=== PATIENT | male | born 1985 | race African-American/Black ===

== ENCOUNTER 2022-02-25 16:08 | Inpatient (IN) | payer SELFPAY ==
[~2022-02-25] VITALS: Ht 188 cm; Wt 129.6 kg
[~2022-02-25 16:08] MED LIST: LIDO; LIDOCAINE VISCOUS TOP; NAPR250T OR; NICO14DI3 TD; PERC5TAB8 OR; TRAM50TA2 OR; l; lidocaine PO
[2022-02-25] MEDS ORDERED: MORPHINE 4 MG/ML 1ML VIAL/SYRINGE IV ONE (17:35)
[2022-02-25 18:04] LABS: BASO # 0.1 10^3/uL (0.0-0.2); BASO % 0.4 % (0.0-1.0); EOS # 0.1 10^3/uL (0.0-0.5); EOS % 0.5 % (0.0-3.0); HEMATOCRIT 43.3 % (42.0-52.0); HEMOGLOBIN 14.3 g/dl (13.5-17.5); LYMPH # 3.6 10^3/uL (1.5-5.0); LYMPH % 30.9 % (24.0-44.0); MEAN CORPUSCULAR HEMOGLOBIN 28.5 pg (27.0-33.0); MEAN CORPUSCULAR VOLUME 86.3 fl (80.0-96.0); MONO # 1.2 10^3/uL (0.0-0.8); MONO % 10.4 % (2.0-8.0); NEUTROPHILS # 6.6 10^3/uL (1.5-8.5); NEUTROPHILS % 57.3 % (36.0-66.0); PLATELET COUNT, AUTOMATED 169 10^3/uL (150-450); RED BLOOD COUNT 5.02 10^6/uL (4.30-6.10); WHITE BLOOD COUNT 11.5 10^3/uL (4.0-10.0)
[2022-02-25 18:43] LABS: BLOOD UREA NITROGEN 21 MG/DL (9-23); CALCIUM LEVEL 8.9 MG/DL (8.5-10.1); CARBON DIOXIDE LEVEL 21 MMOL/L (20-31); CHLORIDE LEVEL 104 MMOL/L (98-107); CK-MB VALUE MASS < 1.0 NG/ML (<3.6); CPK CREATINE PHOSPHOKINASE 161 U/L (46-171); GLOMERULAR FILTRATION RATE 51.7 (>60); GLUCOSE, FASTING 121 MG/DL (60-100); MB/CK RELATIVE INDEX 0.62 (< OR =4); POTASSIUM SERUM 4.2 MMOL/L (3.5-5.1); SODIUM LEVEL 138 MMOL/L (136-145)
[2022-02-25] MEDS ORDERED: KETOROLAC 30 MG/ML 1ML VIAL IV ONE (18:55)
[2022-02-25] MEDS ORDERED: ALBUTEROL 90 MCG/ACT 8GM HFA INHALER INH ONE (18:55)
[2022-02-25] MEDS ORDERED: NS 1,000 ML IV ONE ×2 (18:55→21:00)
[2022-02-25 19:42] LABS: MB/CK RELATIVE INDEX 0.59 (< OR =4)
[2022-02-25] MEDS ORDERED: HYDROMORPHONE HCL 0.5 MG/ 0.5 ML SYRINGE (J1170 PER 1) IV PRN (23:35)
[2022-02-25] MEDS ORDERED: ACETAMINOPHEN TAB 650MG DOSE (2X325MG) PO PRN (23:35)
[2022-02-25] MEDS ORDERED: NS 1,000 ML IV SCH (23:50)
[2022-02-26] VITALS (12 sets, daily range): BP systolic 148–200; BP diastolic 96–116
[2022-02-26] MEDS ORDERED: ACET-897 PO (00:18)
[2022-02-26] MEDS: METOPROLOL TART 12.5 MG PER 1/2 TAB PO SCH ×2 (00:19→08:05)
[2022-02-26] MEDS ORDERED: HOME MED LIST COMPLETE! XX SCH (00:20)
[2022-02-26] MEDS ORDERED: HYDROMORPHONE HCL 0.5 MG/ 0.5 ML SYRINGE (J1170 PER 1) IV ONE (03:05)
[2022-02-26] MEDS: LIDOCAINE 5% (LIDODERM) PATCH TD SCH ×2 (03:51→20:30)
[2022-02-26] MEDS ORDERED: **hydrALAZINE** 10 MG TAB PO ONE ×3 (04:40→15:55)
[2022-02-26] MEDS: HEPARIN SOD (PORCINE) 5000UNITS/ML 1ML VIAL/SYRINGE SC SCH ×2 (05:00→14:33)
[2022-02-26 06:33] LABS: ALBUMIN 3.9 G/DL (3.2-5.2); ALT/SGPT 34 U/L (7.0-40); BILIRUBIN,TOTAL 0.8 MG/DL (0.3-1.2); BLOOD UREA NITROGEN 23 MG/DL (9-23); CALCIUM LEVEL 8.2 MG/DL (8.5-10.1); CARBON DIOXIDE LEVEL 22 MMOL/L (20-31); CHLORIDE LEVEL 106 MMOL/L (98-107); CREATININE FOR GFR 1.52 MG/DL (0.70-1.30); GLOMERULAR FILTRATION RATE > 60.0 (>60); GLUCOSE, FASTING 106 MG/DL (60-100); POTASSIUM SERUM 4.1 MMOL/L (3.5-5.1); SODIUM LEVEL 138 MMOL/L (136-145); TOTAL PROTEIN 7.1 G/DL (5.7-8.2)
[2022-02-26] MEDS: HYDROMORPHONE HCL 0.5 MG/ 0.5 ML SYRINGE (J1170 PER 1) IV PRN ×5 (07:59→21:35)
[2022-02-26] MEDS: THIAMINE 100 MG TAB PO SCH (08:02)
[2022-02-26] MEDS: FOLIC ACID 1MG TAB PO SCH (08:02)
[2022-02-26] MEDS: MULTIVITAMINS/MINERALS THERAP 1 TAB PO SCH (08:05)
[2022-02-26] MEDS: NS 1,000 ML IV SCH (14:33)
[2022-02-26 16:33] LABS: APPEARANCE, URINE MANUAL CLEAR (CLEAR); COLOR, URINE MANUAL LT YELLOW (YELLOW)
[2022-02-26 16:34] LABS: BILIRUBIN, URINE MANUAL NEGATIVE (NEGATIVE); BLOOD URINE MANUAL NEGATIVE (NEGATIVE); GLUCOSE, URINE (UA) MANUAL NEGATIVE (NEGATIVE); KETONE, URINE MANUAL NEGATIVE (NEGATIVE); LEUKOCYTE ESTERASE, URINE MAN NEGATIVE (NEGATIVE); NITRITE, URINE MANUAL NEGATIVE (NEGATIVE); PH,URINE MAN 5.5 UNITS (5.0 - 7.0); PROTEIN, URINE MANUAL NEGATIVE (NEGATIVE); UROBILINOGEN, URINE MANUAL NORMAL (NORMAL)
[2022-02-26] MEDS: ENOXAPARIN 150MG/ML SYRINGE (J1650 PER 10MG) SC SCH (18:24)
[2022-02-26] MEDS ORDERED: cloNIDine 0.1MG TABLET PO ONE (19:10)
[2022-02-26] MEDS ORDERED: METOPROLOL TART 12.5 MG PER 1/2 TAB PO SCH (21:00)
[2022-02-26] MEDS: **hydrALAZINE HCL** 25 MG TAB PO SCH (23:16)
[2022-02-27] VITALS (19 sets, daily range): BP systolic 133–202; BP diastolic 77–117
[2022-02-27] MEDS: NS 1,000 ML IV SCH ×2 (02:48→10:37)
[2022-02-27] MEDS: HYDROMORPHONE HCL 0.5 MG/ 0.5 ML SYRINGE (J1170 PER 1) IV PRN ×3 (02:49→09:41)
[2022-02-27] MEDS: **hydrALAZINE HCL** 25 MG TAB PO SCH (06:15)
[2022-02-27] MEDS: ENOXAPARIN 150MG/ML SYRINGE (J1650 PER 10MG) SC SCH (06:15)
[2022-02-27] MEDS: MULTIVITAMINS/MINERALS THERAP 1 TAB PO SCH (08:11)
[2022-02-27] MEDS: THIAMINE 100 MG TAB PO SCH (08:11)
[2022-02-27] MEDS: FOLIC ACID 1MG TAB PO SCH (08:15)
[2022-02-27 08:27] LABS: BASO # 0.1 10^3/uL (0.0-0.2); BASO % 0.5 % (0.0-1.0); EOS # 0.1 10^3/uL (0.0-0.5); EOS % 0.6 % (0.0-3.0); HEMATOCRIT 40.3 % (42.0-52.0); HEMOGLOBIN 13.5 g/dl (13.5-17.5); LYMPH # 2.4 10^3/uL (1.5-5.0); LYMPH % 21.8 % (24.0-44.0); MEAN CORPUSCULAR HEMOGLOBIN 29.1 pg (27.0-33.0); MEAN CORPUSCULAR HGB CONC 33.5 g/dl (32.0-36.5); MEAN CORPUSCULAR VOLUME 86.9 fl (80.0-96.0); MONO % 15.8 % (2.0-8.0); NEUTROPHILS # 6.8 10^3/uL (1.5-8.5); NEUTROPHILS % 60.9 % (36.0-66.0); PLATELET COUNT, AUTOMATED 130 10^3/uL (150-450); RED BLOOD COUNT 4.64 10^6/uL (4.30-6.10); WHITE BLOOD COUNT 11.1 10^3/uL (4.0-10.0)
[2022-02-27] MEDS ORDERED: METOPROLOL TART 25 MG TABLET PO SCH (09:00)
[2022-02-27] MEDS ORDERED: LORazepam 1 MG TAB PO ONE (09:10)
[2022-02-27 09:35] LABS: MONO # 1.8 10^3/uL (0.0-0.8)
[2022-02-27 09:50] LABS: BLOOD UREA NITROGEN 13 MG/DL (9-23); CALCIUM LEVEL 8.8 MG/DL (8.5-10.1); CARBON DIOXIDE LEVEL 22 MMOL/L (20-31); CHLORIDE LEVEL 103 MMOL/L (98-107); CREATININE FOR GFR 1.22 MG/DL (0.70-1.30); GLOMERULAR FILTRATION RATE > 60.0 (>60); GLUCOSE, FASTING 105 MG/DL (60-100); POTASSIUM SERUM 3.9 MMOL/L (3.5-5.1); SODIUM LEVEL 136 MMOL/L (136-145)
[2022-02-27] MEDS ORDERED: PERCOCET 5MG/325MG TAB PO PRN (10:00)
[2022-02-27] MEDS ORDERED: CYCLOBENZAPRINE 5MG TABLET PO PRN (10:05)
[2022-02-27] MEDS ORDERED: ISOVUE-370 76% 100ML VIAL As Ordered ONE (10:20)
[2022-02-27] MEDS ORDERED: ESMOLOL HCL 2,000 MG in IV 1 EA IV SCH (11:10)
[2022-02-27] MEDS ORDERED: NITROGLYCERIN IN D5W 25MG/250ML (100MCG/ML) As Ordered ONE (11:17)
[2022-02-27] MEDS ORDERED: PROTAMINE SULF 50MG/5ML VIAL (J2720 PER 10MG) IV STA (11:23)
[2022-02-27 11:49] LABS: HEMATOCRIT 42.2 % (42.0-52.0); HEMOGLOBIN 14.2 g/dl (13.5-17.5); MEAN CORPUSCULAR HEMOGLOBIN 29.3 pg (27.0-33.0); MEAN CORPUSCULAR HGB CONC 33.6 g/dl (32.0-36.5); MEAN CORPUSCULAR VOLUME 87.2 fl (80.0-96.0); PLATELET COUNT, AUTOMATED 139 10^3/uL (150-450); RED BLOOD COUNT 4.84 10^6/uL (4.30-6.10); WHITE BLOOD COUNT 12.9 10^3/uL (4.0-10.0)
[2022-02-27] MEDS ORDERED: NITROPRUSSIDE SODIUM 50 MG in IV 1 EA IV SCH (11:55)
[2022-02-27 11:58] LABS: INR 1.08; PROTHROMBIN TIME 14.3 SECONDS (12.5-14.5)
[2022-02-27] MEDS ORDERED: LIDOCAINE 1% MDV 20ML VIAL As Ordered ONE (12:13)
[2022-02-27 12:15] LABS: ALBUMIN 3.9 G/DL (3.2-5.2); ALT/SGPT 37 U/L (7.0-40); BILIRUBIN,TOTAL 1.6 MG/DL (0.3-1.2); BLOOD UREA NITROGEN 12 MG/DL (9-23); CALCIUM LEVEL 9.2 MG/DL (8.5-10.1); CARBON DIOXIDE LEVEL 24 MMOL/L (20-31); CHLORIDE LEVEL 102 MMOL/L (98-107); CREATININE FOR GFR 1.16 MG/DL (0.70-1.30); GLOMERULAR FILTRATION RATE > 60.0 (>60); GLUCOSE, FASTING 98 MG/DL (60-100); POTASSIUM SERUM 4.1 MMOL/L (3.5-5.1); SODIUM LEVEL 136 MMOL/L (136-145); TOTAL PROTEIN 7.8 G/DL (5.7-8.2)
[2022-02-27] MEDS ORDERED: LIDOCAINE 1% MDV 20ML VIAL SC ONE (12:15)
[2022-02-27] MEDS ORDERED: **hydrALAZINE** 50 MG TAB PO SCH (14:00)
[2022-02-27] MEDS ORDERED: HYDROMORPHONE HCL 0.5 MG/ 0.5 ML SYRINGE (J1170 PER 1) IV PRN (16:00)
== END 2022-02-27 12:45 | disposition short-term general hospital (02) | DRG 197 ==
LOC: M ED 16:08 → M ED INP 23:32 → M MS5PR 02-26 02:36 → M ICU 02-27 11:20
PROVIDERS: ADMIT Internal Medicine; ATTEND Internal Medicine
PROC: B246ZZZ Ultrasonography of Right and Left Heart (ICD-10-PCS; principal; 2022-02-26)
DX: I71.00 Dissection of unspecified site of aorta (principal); N17.9 Acute kidney failure, unspecified; L97.919 Non-pressure chronic ulcer of unspecified part of right lower leg with unspecified severity; L97.929 Non-pressure chronic ulcer of unspecified part of left lower leg with unspecified severity; F17.210 Nicotine dependence, cigarettes, uncomplicated; N18.9 Chronic kidney disease, unspecified; F10.20 Alcohol dependence, uncomplicated; I16.1 Hypertensive emergency; Z20.822 Contact with and (suspected) exposure to COVID-19; M54.16 Radiculopathy, lumbar region; M51.26 Other intervertebral disc displacement, lumbar region; R79.89 Other specified abnormal findings of blood chemistry; I87.2 Venous insufficiency (chronic) (peripheral); I12.9 Hypertensive chronic kidney disease with stage 1 through stage 4 chronic kidney disease, or unspecified chronic kidney disease; L88 Pyoderma gangrenosum; K52.9 Noninfective gastroenteritis and colitis, unspecified

== ENCOUNTER → 2022-04-04 | Outpatient (CLI) | payer MEDICAID, MEDICARE ==
[~2022-04-04] MED LIST changes: +ACET-897 PO; +ACET1TAB55 PO; +ADV250INH INH; +AMIO200T49 PO; +AMLO1TAB25 PO; +CEFU50TA PO; +CLON0.2D6 TD; +FAMO20TA PO; +HYDR-3490 PO; +LOVE1INJ SC; +METO50TA7 PO; +NORV5TAB PO; +WARF-58 PO; +XANA0.5T PO
[2022-04-04 10:34] LABS: INR 1.2; PROTHROMBIN TIME 15.5 SECONDS (12.5-14.5)
== END ==
LOC: M LAB 09:45
PROVIDERS: ATTEND Nurse Practitioner Family
DX: I71.010 Dissection of ascending aorta (principal); F10.11 Alcohol abuse, in remission; Z79.01 Long term (current) use of anticoagulants

== ENCOUNTER 2022-04-05 05:30 | Emergency (ER) | payer MEDICAID, MEDICARE, OTHER ==
[~2022-04-05] VITALS: Ht 188 cm; Wt 104.5 kg
[~2022-04-05 05:30] MED LIST changes: -ACET1TAB55 PO; -ADV250INH INH; -AMIO200T49 PO; -AMLO1TAB25 PO; -CEFU50TA PO; -CLON0.2D6 TD; -FAMO20TA PO; -HYDR-3490 PO; -LOVE1INJ SC; -METO50TA7 PO; -NORV5TAB PO; -WARF-58 PO; -XANA0.5T PO
[2022-04-05 06:02] LABS: BASO # 0.1 10^3/uL (0.0-0.2); BASO % 1.7 % (0.0-1.0); EOS # 0.1 10^3/uL (0.0-0.5); EOS % 1.2 % (0.0-3.0); HEMATOCRIT 34.2 % (42.0-52.0); HEMOGLOBIN 11.1 g/dl (13.5-17.5); LYMPH # 3.5 10^3/uL (1.5-5.0); LYMPH % 59.5 % (24.0-44.0); MEAN CORPUSCULAR HEMOGLOBIN 27.7 pg (27.0-33.0); MEAN CORPUSCULAR HGB CONC 32.5 g/dl (32.0-36.5); MEAN CORPUSCULAR VOLUME 85.3 fl (80.0-96.0); MONO # 0.7 10^3/uL (0.0-0.8); MONO % 12.1 % (2.0-8.0); NEUTROPHILS # 1.5 10^3/uL (1.5-8.5); NEUTROPHILS % 25.3 % (36.0-66.0); PLATELET COUNT, AUTOMATED 312 10^3/uL (150-450); RED BLOOD COUNT 4.01 10^6/uL (4.30-6.10); WHITE BLOOD COUNT 5.9 10^3/uL (4.0-10.0)
[2022-04-05] MEDS ORDERED: LORazepam 2 MG/ML VIAL IV STA (06:02)
[2022-04-05] MEDS ORDERED: NS 1,000 ML IV ONE (06:05)
[2022-04-05 06:14] LABS: INR 1.1; PROTHROMBIN TIME 14.4 SECONDS (12.5-14.5)
[2022-04-05 06:15] LABS: PARTIAL THROMBOPLASTIN TIME 39.4 SECONDS (24.8-34.2)
[2022-04-05] MEDS ORDERED: METO50TA7 PO (06:15)
[2022-04-05] MEDS ORDERED: LOVE1INJ SC (06:15)
[2022-04-05] MEDS ORDERED: ACET1TAB55 PO (06:15)
[2022-04-05] MEDS ORDERED: AMLO1TAB25 PO (06:15)
[2022-04-05] MEDS ORDERED: CLON0.2D6 TD (06:15)
[2022-04-05] MEDS ORDERED: FAMO20TA PO (06:15)
[2022-04-05] MEDS ORDERED: HYDR-3490 PO (06:15)
[2022-04-05] MEDS ORDERED: AMIO200T49 PO (06:15)
[2022-04-05] MEDS ORDERED: CEFU50TA PO (06:15)
[2022-04-05] MEDS ORDERED: WARF-58 PO (06:15)
[2022-04-05] MEDS ORDERED: ADV250INH INH (06:15)
[2022-04-05] MEDS ORDERED: HOME MED LIST COMPLETE! XX SCH (06:20)
[2022-04-05 06:21] LABS: LIPASE 79 U/L (12-53)
[2022-04-05 06:23] LABS: BILIRUBIN,DIRECT 0.4 MG/DL (<0.4)
[2022-04-05 06:24] LABS: ALBUMIN 3.4 G/DL (3.2-5.2); ALKALINE PHOSPHATASE 97 U/L (46-116); ALT/SGPT 22 U/L (7.0-40); AST/SGOT 24 U/L (<34); BILIRUBIN,TOTAL 0.7 MG/DL (0.3-1.2); BLOOD UREA NITROGEN 31 MG/DL (9-23); CALCIUM LEVEL 9.1 MG/DL (8.5-10.1); CARBON DIOXIDE LEVEL 23 MMOL/L (20-31); CHLORIDE LEVEL 101 MMOL/L (98-107); CK-MB VALUE MASS < 1.0 NG/ML (<3.6); CREATININE FOR GFR 1.68 MG/DL (0.70-1.30); GLOMERULAR FILTRATION RATE 59.6 (>60); GLUCOSE, FASTING 97 MG/DL (60-100); POTASSIUM SERUM 3.4 MMOL/L (3.5-5.1); SODIUM LEVEL 138 MMOL/L (136-145); TOTAL PROTEIN 7.5 G/DL (5.7-8.2)
[2022-04-05 06:33] LABS: RSV AMPLIFICATION NEGATIVE (NEGATIVE)
[2022-04-05 06:38] LABS: CPK CREATINE PHOSPHOKINASE 38 U/L (46-171); MB/CK RELATIVE INDEX 2.63 (< OR =4)
[2022-04-05] MEDS ORDERED: ISOVUE-370 76% 100ML VIAL As Ordered ONE (06:39)
[2022-04-05 07:49] LABS: CK-MB VALUE MASS < 1.0 NG/ML (<3.6)
[2022-04-05 07:50] LABS: CPK CREATINE PHOSPHOKINASE 21 U/L (46-171); MB/CK RELATIVE INDEX 4.76 (< OR =4)
[2022-04-05] MEDS ORDERED: amLODIPine 5 MG TAB PO ONE (09:15)
[2022-04-05] MEDS ORDERED: METOPROLOL TART 50 MG TAB PO ONE (09:15)
[2022-04-05] MEDS ORDERED: ENOXAPARIN 100MG/1ML SYRINGE (J1650 PER 10MG) SC ONE (09:15)
[2022-04-05] MEDS ORDERED: AMIODARONE 200 MG TAB (PACERONE) PO ONE (09:15)
[2022-04-05] MEDS ORDERED: CEFUROXIME 500 MG TAB PO ONE (11:00)
[2022-04-05 11:03] VITALS: BP 123/74
[2022-04-05] MEDS ORDERED: NORV5TAB PO ×2 (11:09→12:27)
[2022-04-05] MEDS ORDERED: XANA0.5T PO (12:27)
[2022-04-05 12:30] VITALS: BP 137/75
== END 2022-04-05 12:32 | disposition home or self-care (01) ==
LOC: M ED 05:30 → EDBD 05:30 → M ED 12:32
DX: R42 Dizziness and giddiness (principal); T50.905A Adverse effect of unspecified drugs, medicaments and biological substances, initial encounter; I10 Essential (primary) hypertension; F10.10 Alcohol abuse, uncomplicated; N18.9 Chronic kidney disease, unspecified
CPT/HCPCS: 71275; 74174; 80048; 80076; 82550; 82553; 83690; 85025; 85610; 85730; 87631; 93005; 93041; 93306; 93880; 96374; 99285; J1650; J2060

== ENCOUNTER → 2022-04-12 | Outpatient (REF) | payer MEDICAID ==
[~2022-04-12] MED LIST changes: +ACET1TAB55 PO; +ADV250INH INH; +AMIO200T49 PO; +AMLO1TAB25 PO; +CEFU50TA PO; +CLON0.2D6 TD; +FAMO20TA PO; +HYDR-3490 PO; +LOVE1INJ SC; +METO50TA7 PO; +NORV5TAB PO; +WARF-58 PO; +XANA0.5T PO
[2022-04-12 12:01] LABS: INR 1.51; PROTHROMBIN TIME 18.5 SECONDS (12.5-14.5)
== END ==
LOC: M LAB REF 11:20
PROVIDERS: ATTEND Nurse Practitioner
DX: I71.03 Dissection of thoracoabdominal aorta (principal); Z79.01 Long term (current) use of anticoagulants

== ENCOUNTER → 2022-04-12 | Outpatient (REF) | payer MEDICAID ==
[2022-04-12 11:45] LABS: BASO % 0.9 % (0.0-1.0); EOS # 0.1 10^3/uL (0.0-0.5); EOS % 1.9 % (0.0-3.0); HEMATOCRIT 36.6 % (42.0-52.0); HEMOGLOBIN 11.7 g/dl (13.5-17.5); LYMPH # 2.6 10^3/uL (1.5-5.0); LYMPH % 60.5 % (24.0-44.0); MEAN CORPUSCULAR HEMOGLOBIN 27.7 pg (27.0-33.0); MEAN CORPUSCULAR VOLUME 86.7 fl (80.0-96.0); MONO # 0.5 10^3/uL (0.0-0.8); MONO % 12.6 % (2.0-8.0); NEUTROPHILS % 24.1 % (36.0-66.0); PLATELET COUNT, AUTOMATED 294 10^3/uL (150-450); RED BLOOD COUNT 4.22 10^6/uL (4.30-6.10); WHITE BLOOD COUNT 4.3 10^3/uL (4.0-10.0)
[2022-04-12 12:19] LABS: ALBUMIN 3.6 G/DL (3.2-5.2); ALKALINE PHOSPHATASE 81 U/L (46-116); ALT/SGPT 49 U/L (7.0-40); AST/SGOT 27 U/L (<34); BILIRUBIN,TOTAL 0.5 MG/DL (0.3-1.2); BLOOD UREA NITROGEN 17 MG/DL (9-23); CALCIUM LEVEL 9.6 MG/DL (8.5-10.1); CARBON DIOXIDE LEVEL 26 MMOL/L (20-31); CHLORIDE LEVEL 102 MMOL/L (98-107); CREATININE FOR GFR 1.52 MG/DL (0.70-1.30); GLOMERULAR FILTRATION RATE > 60.0 (>60); GLUCOSE, FASTING 96 MG/DL (60-100); POTASSIUM SERUM 3.7 MMOL/L (3.5-5.1); SODIUM LEVEL 139 MMOL/L (136-145); TOTAL PROTEIN 7.4 G/DL (5.7-8.2)
[2022-04-12 12:46] LABS: HIV 1&2 SCREEN CENTAUR NEGATIVE (NEGATIVE)
[2022-04-12 12:54] LABS: HEPATITIS C VIRUS ABY INDEX 0.2 INDEX (<0.8)
== END ==
LOC: M LAB REF 11:24
PROVIDERS: ATTEND Nurse Practitioner Family
DX: Z11.9 Encounter for screening for infectious and parasitic diseases, unspecified (principal)

== ENCOUNTER → 2022-04-22 | Outpatient (REF) | payer MEDICAID ==
[2022-04-22 17:53] LABS: INR 2.41; PROTHROMBIN TIME 26.6 SECONDS (12.5-14.5)
== END ==
LOC: M LAB REF 16:46
PROVIDERS: ATTEND Internal Medicine Cardiovascular Disease
DX: I48.91 Unspecified atrial fibrillation (principal)

== ENCOUNTER → 2022-04-30 | Outpatient (REF) | payer MEDICAID ==
[2022-04-30 12:45] LABS: PROTHROMBIN TIME 31.6 SECONDS (12.5-14.5)
== END ==
LOC: M LAB REF 11:37
PROVIDERS: ATTEND Internal Medicine Cardiovascular Disease
DX: I48.91 Unspecified atrial fibrillation (principal)

== ENCOUNTER → 2022-06-14 | Outpatient (REF) | payer OTHER, MEDICAID ==
[2022-06-14 13:30] LABS: APPEARANCE, URINE CLEAR (CLEAR); BACTERIA, URINE AUTO NEGATIVE (NEGATIVE); BILIRUBIN, URINE AUTO NEGATIVE (NEGATIVE); BLOOD, URINE BLOOD NEGATIVE (NEGATIVE); COLOR, URINE YELLOW (YELLOW); GLUCOSE, URINE (UA) AUTO NEGATIVE (NEGATIVE); KETONE, URINE AUTO NEGATIVE (NEGATIVE); LEUKOCYTE ESTERASE, URINE AUTO NEGATIVE (NEGATIVE); MUCUS, URINE SMALL (NEGATIVE); NITRITE, URINE AUTO NEGATIVE (NEGATIVE); PROTEIN, URINE AUTO NEGATIVE (NEGATIVE); RBC, URINE AUTO 0 /HPF (0-3); SPECIFIC GRAVITY URINE AUTO 1.021 (1.002-1.035); SQUAMOUS EPITHELIAL CELL UR AU 0 /HPF (0-6); UROBILINOGEN, URINE AUTO 0.2 mg/dL (0.0-2.0); WBC, URINE AUTO 1 /HPF (0-3)
[2022-06-14 16:47] LABS: BASO # 0.1 10^3/uL (0.0-0.2); BASO % 0.8 % (0.0-1.0); EOS # 0.1 10^3/uL (0.0-0.5); EOS % 2.2 % (0.0-3.0); HEMATOCRIT 44.5 % (42.0-52.0); HEMOGLOBIN 14.3 g/dl (13.5-17.5); LYMPH # 3.8 10^3/uL (1.5-5.0); LYMPH % 59.4 % (24.0-44.0); MEAN CORPUSCULAR HEMOGLOBIN 26.4 pg (27.0-33.0); MEAN CORPUSCULAR HGB CONC 32.1 g/dl (32.0-36.5); MEAN CORPUSCULAR VOLUME 82.3 fl (80.0-96.0); MONO # 0.5 10^3/uL (0.0-0.8); MONO % 7.7 % (2.0-8.0); NEUTROPHILS # 1.9 10^3/uL (1.5-8.5); NEUTROPHILS % 29.7 % (36.0-66.0); PLATELET COUNT, AUTOMATED 237 10^3/uL (150-450); RED BLOOD COUNT 5.41 10^6/uL (4.30-6.10); WHITE BLOOD COUNT 6.4 10^3/uL (4.0-10.0)
[2022-06-14 17:15] LABS: VITAMIN B12 LEVEL 963 PG/ML (211-911)
[2022-06-14 17:18] LABS: FERRITIN 71.2 NG/ML (10.5-307.3)
[2022-06-14 17:19] LABS: FOLATE 9.7 NG/ML (>5.4); IRON (FE) 62 UG/DL (65-175); TOTAL IRON BINDING CAPACITY 365 UG/DL (250-425)
[2022-06-14 17:20] LABS: ALBUMIN 4.2 G/DL (3.2-5.2); ALKALINE PHOSPHATASE 81 U/L (46-116); ALT/SGPT 24 U/L (7.0-40); AST/SGOT 13 U/L (<34); BILIRUBIN,TOTAL 0.4 MG/DL (0.3-1.2); BLOOD UREA NITROGEN 23 MG/DL (9-23); CALCIUM LEVEL 9.7 MG/DL (8.5-10.1); CARBON DIOXIDE LEVEL 29 MMOL/L (20-31); CHLORIDE LEVEL 104 MMOL/L (98-107); CHOLESTEROL LEVEL 252 MG/DL (<200); CHOLESTEROL RISK RATIO 6.22 (<5); CREATININE FOR GFR 1.56 MG/DL (0.70-1.30); GLOMERULAR FILTRATION RATE > 60.0 (>60); GLUCOSE, FASTING 85 MG/DL (60-100); HDL CHOLESTEROL 40.5 MG/DL (>40); LDL CHOLESTEROL 181.5 MG/DL (<100); NON-HDL-C 211.5 MG/DL; POTASSIUM SERUM 4.1 MMOL/L (3.5-5.1); SODIUM LEVEL 139 MMOL/L (136-145); TOTAL PROTEIN 8.1 G/DL (5.7-8.2); TRIGLYCERIDES LEVEL 150 MG/DL (<150)
== END ==
LOC: M LAB REF 12:19
PROVIDERS: ATTEND Nurse Practitioner Family
DX: R79.89 Other specified abnormal findings of blood chemistry (principal); D64.9 Anemia, unspecified; R94.5 Abnormal results of liver function studies; Z13.6 Encounter for screening for cardiovascular disorders

== ENCOUNTER → 2022-07-25 | Outpatient (CLI) | payer OTHER | LOC: M RAD 15:44 | PROVIDERS: ATTEND Nurse Practitioner Family | DX: R20.2 Paresthesia of skin (principal) ==

== ENCOUNTER → 2022-07-26 | Outpatient (REF) | payer OTHER ==
[2022-07-26 13:34] LABS: ALBUMIN 4.3 G/DL (3.2-5.2); BILIRUBIN,DIRECT 0.1 MG/DL (<0.4); BILIRUBIN,TOTAL 0.4 MG/DL (0.3-1.2); TOTAL PROTEIN 7.8 G/DL (5.7-8.2)
[2022-07-26 13:37] LABS: THYROID STIMULATING HORMONE 6.311 uIU/ML (0.55-4.78)
== END ==
LOC: M LAB REF 12:29
PROVIDERS: ATTEND Nurse Practitioner Family
DX: R68.89 Other general symptoms and signs (principal); E78.2 Mixed hyperlipidemia

== ENCOUNTER → 2022-08-22 | Outpatient (REF) | payer OTHER ==
[2022-08-22 17:14] LABS: HEMATOCRIT 43.2 % (42.0-52.0); MEAN CORPUSCULAR HEMOGLOBIN 26.6 pg (27.0-33.0); MEAN CORPUSCULAR HGB CONC 32.4 g/dl (32.0-36.5); PLATELET COUNT, AUTOMATED 240 10^3/uL (150-450); RED BLOOD COUNT 5.27 10^6/uL (4.30-6.10); WHITE BLOOD COUNT 5.8 10^3/uL (4.0-10.0)
[2022-08-22 17:48] LABS: BLOOD UREA NITROGEN 24 MG/DL (9-23); CALCIUM LEVEL 9.2 MG/DL (8.5-10.1); CARBON DIOXIDE LEVEL 26 MMOL/L (20-31); CHLORIDE LEVEL 108 MMOL/L (98-107); CREATININE FOR GFR 1.66 MG/DL (0.70-1.30); GLOMERULAR FILTRATION RATE > 60.0 (>60); GLUCOSE, FASTING 61 MG/DL (60-100); POTASSIUM SERUM 4.9 MMOL/L (3.5-5.1); SODIUM LEVEL 140 MMOL/L (136-145)
[2022-08-22 17:51] LABS: THYROID STIMULATING HORMONE 3.385 uIU/ML (0.55-4.78)
[2022-08-22 17:53] LABS: THYROID PEROXIDASE ANTIBODY < 28.0 U/ML (<60.0)
== END ==
LOC: M LAB REF 16:20
PROVIDERS: ATTEND Nurse Practitioner Family
DX: R68.89 Other general symptoms and signs (principal); E03.9 Hypothyroidism, unspecified; S37.001 Unspecified injury of right kidney; D64.9 Anemia, unspecified

== ENCOUNTER → 2022-10-21 | Outpatient (CLI) | payer OTHER | LOC: M RAD 09:13 | PROVIDERS: ATTEND Internal Medicine Pulmonary Disease | DX: R91.8 Other nonspecific abnormal finding of lung field (principal) ==

== ENCOUNTER → 2023-01-07 | Outpatient (CLI) | payer OTHER | LOC: M SLEEP HO 10:13 | PROVIDERS: ATTEND Internal Medicine Pulmonary Disease | DX: R06.83 Snoring (principal) ==

== ENCOUNTER → 2023-01-07 | Outpatient (REF) | payer OTHER ==
[2023-01-08 12:11] LABS: APPEARANCE, URINE CLOUDY (CLEAR); BACTERIA, URINE AUTO NEGATIVE (NEGATIVE); BILIRUBIN, URINE AUTO NEGATIVE (NEGATIVE); BLOOD, URINE BLOOD NEGATIVE (NEGATIVE); COLOR, URINE YELLOW (YELLOW); GLUCOSE, URINE (UA) AUTO NEGATIVE (NEGATIVE); KETONE, URINE AUTO NEGATIVE (NEGATIVE); LEUKOCYTE ESTERASE, URINE AUTO NEGATIVE (NEGATIVE); MUCUS, URINE SMALL (NEGATIVE); NITRITE, URINE AUTO NEGATIVE (NEGATIVE); PROTEIN, URINE AUTO NEGATIVE (NEGATIVE); RBC, URINE AUTO 0 /HPF (0-3); SPECIFIC GRAVITY URINE AUTO 1.023 (1.002-1.035); SQUAMOUS EPITHELIAL CELL UR AU 0 /HPF (0-6); UROBILINOGEN, URINE AUTO 0.2 mg/dL (0.0-2.0); WBC, URINE AUTO 0 /HPF (0-3)
== END ==
LOC: M LAB REF 11:40
PROVIDERS: ATTEND Nurse Practitioner Family
DX: R39.11 Hesitancy of micturition (principal)

== ENCOUNTER → 2023-04-28 | Outpatient (CLI) | payer OTHER | LOC: M RAD 16:56 | PROVIDERS: ATTEND Thoracic Surgery (Cardiothoracic Vascular Surgery) | DX: I71.21 Aneurysm of the ascending aorta, without rupture (principal) ==

== ENCOUNTER 2023-10-26 09:29 | Emergency (ER) | payer OTHER ==
[~2023-10-26] VITALS: Ht 188 cm; Wt 117.0 kg
[2023-10-26 10:19] LABS: INR 1.86; PROTHROMBIN TIME 20.8 SECONDS (12.5-14.5)
[2023-10-26 10:31] LABS: BLOOD UREA NITROGEN 23 MG/DL (9-23); CALCIUM LEVEL 9.2 MG/DL (8.5-10.1); CARBON DIOXIDE LEVEL 29 MMOL/L (20-31); CHLORIDE LEVEL 107 MMOL/L (98-107); CREATININE FOR GFR 1.65 MG/DL (0.70-1.30); GLOMERULAR FILTRATION RATE > 60.0 (>60); GLUCOSE, FASTING 97 MG/DL (60-100); POTASSIUM SERUM 3.9 MMOL/L (3.5-5.1); SODIUM LEVEL 141 MMOL/L (136-145)
[2023-10-26 11:15] VITALS: BP 109/70; TEMP 98.7; O2SAT 99
== END 2023-10-26 11:45 | disposition home or self-care (01) ==
LOC: M ED 09:29
DX: I82.412 Acute embolism and thrombosis of left femoral vein (principal); I10 Essential (primary) hypertension; E78.5 Hyperlipidemia, unspecified; Z79.01 Long term (current) use of anticoagulants; Z79.899 Other long term (current) drug therapy

== ENCOUNTER 2024-03-10 18:44 | Emergency (ER) | payer OTHER ==
[~2024-03-10] VITALS: Ht 188 cm; Wt 111.9 kg
[~2024-03-10 18:44] MED LIST changes: -ADV250INH INH; +ADVA1AER9 INH
[2024-03-10 21:02] VITALS: BP 134/83; TEMP 97.8; O2SAT 97
== END 2024-03-10 21:07 | disposition home or self-care (01) ==
LOC: M ED 18:44
DX: S61.301A Unspecified open wound of left index finger with damage to nail, initial encounter (principal); W26.0XXA Contact with knife, initial encounter; Y92.009 Unspecified place in unspecified non-institutional (private) residence as the place of occurrence of the external cause; Y93.9 Activity, unspecified; Y99.9 Unspecified external cause status; I10 Essential (primary) hypertension; Z79.01 Long term (current) use of anticoagulants; Z79.899 Other long term (current) drug therapy

== ENCOUNTER → 2025-02-08 | Outpatient (CLI) | payer OTHER ==
[~2025-02-08] MED LIST changes: -AMIO200T49 PO; +AMIO200T54 PO
== END ==
LOC: M RAD 07:44
PROVIDERS: ATTEND Thoracic Surgery (Cardiothoracic Vascular Surgery)
DX: I71.010 Dissection of ascending aorta (principal)